=== PATIENT | male | born 1980 | race Two or more races ===

== ENCOUNTER 2024-11-06 21:48 | Inpatient (IN) | payer OTHER ==
[~2024-11-06] VITALS: Ht 177.8 cm; Wt 105.2 kg
--- NOTE | 2024-11-06 22:37 | NUR ---
SE RECIBE PACIENTE MASCULINO DE 44 ANOS DE EDAD SE PRESENTA CON QUEJA PRINCIPAL DE HIN[place] EN EXTREMIDADES INFERIORES Y LEVE FATIGA AL CAMINAR. REFIERE DX RECIENTE DE FALLO RENAL POR EL DR.JOSE CHENG DE [place]. PACIENTE ESTUVO ADMITIDO EN DICHA INSTITUCION PARA MANEJO TERAPEUTICO CON FLUIDOS Y MONITOREO DE FUNCION RENAL, JONATHAN REFIERE QUE EXONERO LOS [facility] ANTES DE COMPLETAR [place]. NIEGA DOLOR DE PECHO,DISNEA SEVERA. PACIENTE AL MOMENTO CONSCIENTE, ORIENTADO EN SHAWNA GINNY ESFERAS Y ESTABLE AL MOMENTO
--- NOTE | 2024-11-07 00:26 | NUR ---
SE EDUCA PACIENTE SOBRE EL TX MEDICO Y POOL REFIERE ENTENDER. SE CANALIZA Y SE ADMINISTRA MEDICAMENTOS ISMAEL ORDEN MEDICA. PENDIENTE A PLACA Y U/A.
--- NOTE | 2024-11-07 00:58 | NUR ---
SE NOTIFICAN KATIE BARNES
[2024-11-07 01:03] LABS: BASO % 0.2 % (0.1-1.2); EOS # 0.11 (0.04-0.54); EOS % 0.8 % (0.7-7.0); LYMPH # 1.67 (1.18-3.74); LYMPH % 11.7 % (19.3-53.1); MEAN PLATELET VOLUME 9.60 fl (9.4-12.4); MONO # 1.00 (0.24-0.82); MONO % 7.0 % (4.7-12.5); NEUT # 11.44 (1.56-6.13); NEUT % 79.7 % (34.0-71.1); RED CELL DISTRIBUTION WIDTH 15.8 % (11.6-14.4)
[2024-11-07] MEDS ORDERED: LEVALBUTEROL HCL 1.25 MG/3 ML SOLUTION IH SCH (01:16)
[2024-11-07 01:18] LABS: ABG PH 7.325 (7.35-7.45); ABG PO2 79.0 mmHg (80-100)
[2024-11-07 01:19] LABS: BICARBONATE 17.9 mmol/l (23-25); o2 21 %
[2024-11-07] MEDS ORDERED: LEVALBUTEROL HCL 1.25 MG/3 ML SOLUTION IH ONE ×5 (01:39→20:50)
[2024-11-07 02:15] LABS: ALT/SGPT 32.0 U/L (12-78); AST/SGOT 17.0 U/L (15-37); BILIRUBIN TOTAL 0.24 mg/dL (0.3-1.2); GLOBULINA 3.5 G/DL (2.4-3.5)
[2024-11-07 02:44] LABS: BUN CREA RATIO 7.0 (7.0-25.0); OSMOLALITY SERUM 309.0 MOSM/KG (275-295)
[2024-11-07 02:45] LABS: CREATININE SERUM 9.48 mg/dL (0.70-1.30); GFR 6.0; GLUCOSE FASTING 221.0 mg/dL (65-100)
[2024-11-07 04:26] LABS: URINE APPEARANCE Clear; URINE BILIRRUBIN Negative (NEGATIVE); URINE BLOOD Moderate; URINE COLOR Yellow; URINE KETONE Negative (NEGATIVE); URINE LEUKOCYTE Negative; URINE NITRATE Negative; URINE PROTEIN >=1000 (NEGATIVE); URINE UROBILINOGEN 0.2 E.U./dl
[2024-11-07 04:30] LABS: URINE BACTERIA 65.9 uL (0.0-1933); URINE CAST 1.75 uL (0.0-1.40); URINE EPITHELIAL CELLS 10.3 uL (0.0-38.8); URINE RBC 24.4 uL (0.0-20.8); URINE WBC 16.1 uL (0.0-23.2)
[2024-11-07 04:56] LABS: URINE GLUCOSE >=1000 MG/DL (NEGATIVE)
--- NOTE | 2024-11-07 05:09 | NUR ---
SE COLOCA PACIENTE EN CHILO K-7 Y SE CONECTA A MONITOR CARDIACO
--- NOTE | 2024-11-07 07:16 | NUR ---
SE RECIBE PTE DEL TURNO ANTERIOR ALERTA Y ORIENTADO X3 EN CAMA CON BARANDAS ELEVADAS CONECTADO A MONITOR CARDIACO Y OXIMETRIA CONTINUA. PTE CONSULTADO CON DR ALVARES Y DR HARRIS
[2024-11-07] MEDS ORDERED: LEVALBUTEROL HCL 0.63 MG/3 ML SOLUTION IH ONE (11:00)
[2024-11-07] MEDS ORDERED: GUAIFEN/DEXTROMETHORPHAN/PE 10 ML BLIST.PACK PO ONE ×2 (11:00→11:51)
--- NOTE | 2024-11-07 15:46 | NUR ---
SE NOTIFICA BP A (160/100MMHG).
[2024-11-07] MEDS ORDERED: INSULIN LISPRO 1,000 UNIT/10 ML UNITS SUBCUTANEO PRN (19:30)
[2024-11-07] MEDS ORDERED: SODIUM BICARBONATE 1 MEQ/ML DISP.SYRIN 50ML IV ONE (19:30)
[2024-11-07] MEDS ORDERED: NITROGLYCERIN IN 5 % DEXTROSE 250 ML IV SCH (19:30)
[2024-11-07] MEDS ORDERED: DEXTROSE 50 % IN WATER 0.5 G/ML VIAL IV PRN (19:30)
[2024-11-07] MEDS ORDERED: NITROGLYCERIN IN 5 % DEXTROSE 50 MG/250 ML BOTTLE IV ONE (19:44)
[2024-11-07] MEDS ORDERED: CALCIUM GLUCONATE 100 MG/ML VIAL IV ONE (19:45)
[2024-11-07] MEDS ORDERED: SODIUM BICARBONATE 50MEQ/50ML VIAL IV ONE (20:17)
[2024-11-07] MEDS ORDERED: PIPERACILLIN/TAZOBACTAM SODIUM 2.25 GM VIAL IV SCH (21:00)
[2024-11-07 21:35] VITALS: BP 174/108; O2SAT 100
[2024-11-07] MEDS ORDERED: ACETAMINOPHEN 500 MG GEL..CAP PO ONE (22:04)
[2024-11-07] MEDS ORDERED: ACETAMINOPHEN 325 MG TABLET PO PRN (22:15)
[2024-11-07 23:35] VITALS: BP 169/92; O2SAT 100
[2024-11-08] VITALS (13 sets, daily range): BP systolic 135–170; BP diastolic 78–98; O2SAT 93–100
[2024-11-08 00:08] LABS: BASO % 0.3 % (0.1-1.2); EOS # 0.73 (0.04-0.54); EOS % 5.9 % (0.7-7.0); LYMPH # 1.97 (1.18-3.74); LYMPH % 15.9 % (19.3-53.1); MEAN PLATELET VOLUME 9.30 fl (9.4-12.4); MONO # 0.87 (0.24-0.82); MONO % 7.0 % (4.7-12.5); NEUT # 8.73 (1.56-6.13); NEUT % 70.5 % (34.0-71.1); RED CELL DISTRIBUTION WIDTH 15.7 % (11.6-14.4)
[2024-11-08 00:59] LABS: ALT/SGPT 33.0 U/L (12-78); AST/SGOT 10.0 U/L (15-37); BILIRUBIN TOTAL 0.26 mg/dL (0.3-1.2); GLOBULINA 3.4 G/DL (2.4-3.5); GLUCOSE FASTING 151.0 mg/dL (65-100); OSMOLALITY SERUM 308.0 MOSM/KG (275-295)
[2024-11-08 01:19] LABS: BUN CREA RATIO 7.0 (7.0-25.0); GFR 5.99
[2024-11-08] MEDS ORDERED: LEVALBUTEROL HCL 1.25 MG/3 ML SOLUTION IH ONE ×3 (01:20→20:00)
[2024-11-08 01:21] LABS: CKMB 34.2 NG/ML (0.5-3.6); CREATININE SERUM 9.5 mg/dL (0.70-1.30)
[2024-11-08] MEDS ORDERED: NITROGLYCERIN IN 5 % DEXTROSE 250 ML IV SCH (09:15)
[2024-11-08] MEDS ORDERED: ACETAMINOPHEN 500 MG GEL..CAP PO ONE (10:56)
[2024-11-08] MEDS ORDERED: NIFEDIPINE 30 MG TAB.SA.OSM PO SCH (10:57)
[2024-11-08] MEDS ORDERED: SODIUM POLYSTYRENE SULFONATE 30G/8 TSP PO SCH (12:00)
[2024-11-08] MEDS ORDERED: LACTULOSE 20 G/30 ML BLIST.PACK PO SCH (12:00)
[2024-11-08 12:43] LABS: CHOL HDL RATIO 4.5 (0-5.0); HDL 50.0 mg/dl (40-60); LDL 129.0 mg/dl (0-130); VLDL 45.0 (0-39)
[2024-11-08] MEDS ORDERED: FAMOTIDINE/PF 20 MG/2 ML VIAL ONE (17:45)
[2024-11-08] MEDS ORDERED: FAMOTIDINE/PF 20 MG/2 ML VIAL IV PRN (18:00)
[2024-11-09] MEDS ORDERED: SODIUM POLYSTYRENE SULFONATE 30G/8 TSP PO SCH
== END 2024-11-08 22:35 | disposition left against medical advice (07) | DRG 683 ==
LOC: ER 21:48 → ICU-2 11-07 19:40 → ICU 11-08 20:34
PROVIDERS: General Practice; Internal Medicine; ADMIT Internal Medicine; ATTEND Internal Medicine
PROC: B246ZZZ Ultrasonography of Right and Left Heart (ICD-10-PCS; principal; 2024-11-07)
PROC: 3E0F7GC Introduction of Other Therapeutic Substance into Respiratory Tract, Via Natural or Artificial Opening (ICD-10-PCS; 2024-11-08)
DX: N17.9 Acute kidney failure, unspecified (principal); I13.0 Hypertensive heart and chronic kidney disease with heart failure and stage 1 through stage 4 chronic kidney disease, or unspecified chronic kidney disease; I50.9 Heart failure, unspecified; N18.9 Chronic kidney disease, unspecified; Z53.29 Procedure and treatment not carried out because of patient's decision for other reasons

== ENCOUNTER 2024-11-10 23:37 | Inpatient (IN) | payer OTHER ==
[~2024-11-10] VITALS: Ht 177.8 cm; Wt 105.2 kg
[2024-11-10] MEDS ORDERED: HUMALOG100 UNIT/2 SUBCUTANEO (23:58)
[2024-11-11 01:12] LABS: BASO % 0.4 % (0.1-1.2); EOS # 0.58 (0.04-0.54); EOS % 4.5 % (0.7-7.0); LYMPH # 2.08 (1.18-3.74); LYMPH % 16.0 % (19.3-53.1); MEAN PLATELET VOLUME 9.30 fl (9.4-12.4); MONO # 1.30 (0.24-0.82); MONO % 10.0 % (4.7-12.5); NEUT # 8.91 (1.56-6.13); NEUT % 68.5 % (34.0-71.1); RED CELL DISTRIBUTION WIDTH 15.6 % (11.6-14.4)
[2024-11-11 01:24] LABS: ABG PH 7.369 (7.35-7.45); ABG PO2 66.6 mmHg (80-100); BICARBONATE 18.7 mmol/l (23-25)
[2024-11-11 01:32] LABS: INR 1.03
[2024-11-11 01:36] LABS: o2 21 %
[2024-11-11 01:43] LABS: ALT/SGPT 36.0 U/L (12-78); AST/SGOT 21.0 U/L (15-37); BILIRUBIN TOTAL 0.21 mg/dL (0.3-1.2); BUN CREA RATIO 7.0 (7.0-25.0); GFR 5.94; GLOBULINA 3.8 G/DL (2.4-3.5); GLUCOSE FASTING 181.0 mg/dL (65-100); OSMOLALITY SERUM 308.0 MOSM/KG (275-295)
[2024-11-11 02:08] LABS: CREATININE SERUM 9.57 mg/dL (0.70-1.30)
[2024-11-11 02:35] LABS: URINE APPEARANCE Clear; URINE BILIRRUBIN Negative (NEGATIVE); URINE BLOOD Moderate; URINE COLOR Yellow; URINE KETONE Negative (NEGATIVE); URINE LEUKOCYTE Negative; URINE NITRATE Negative; URINE PROTEIN >=1000 (NEGATIVE); URINE UROBILINOGEN 0.2 E.U./dl
[2024-11-11 02:36] LABS: URINE BACTERIA 38.3 uL (0.0-1933); URINE CAST 2.93 uL (0.0-1.40); URINE EPITHELIAL CELLS 10.9 uL (0.0-38.8); URINE RBC 25.3 uL (0.0-20.8); URINE WBC 15.6 uL (0.0-23.2)
[2024-11-11 02:40] LABS: URINE GLUCOSE 500 MG/DL (NEGATIVE)
[2024-11-11] MEDS ORDERED: GUAIFENESIN 200 MG/10 ML BLIST.PACK PO STA (03:47)
[2024-11-11] MEDS ORDERED: ALBUTEROL SULFATE 3 ML/2.5 MG AMPUL.NEB IH STA (03:47)
[2024-11-11] MEDS ORDERED: GUAIFENESIN 200 MG/10 ML BLIST.PACK PO ONE (04:09)
[2024-11-11] MEDS ORDERED: ALBUTEROL SULFATE 3 ML/2.5 MG AMPUL.NEB IH ONE (04:10)
[2024-11-11] MEDS ORDERED: IPRATROPIUM BROMIDE 0.5 MG/2.5 ML AMPUL.NEB IH SCH (17:59)
[2024-11-11] MEDS ORDERED: DEXTROSE 50 % IN WATER 0.5 G/ML DISP.SYRIN IV PRN (18:15)
[2024-11-11] MEDS ORDERED: INSULIN LISPRO 1,000 UNIT/10 ML UNITS SUBCUTANEO PRN (18:15)
[2024-11-11] MEDS ORDERED: NITROGLYCERIN IN 5 % DEXTROSE 250 ML IV SCH (18:15)
[2024-11-11] MEDS ORDERED: ACETAMINOPHEN 500 MG GEL..CAP PO PRN (18:15)
[2024-11-11 19:31] VITALS: BP 159/89; O2SAT 98
[2024-11-11] MEDS ORDERED: NITROGLYCERIN IN 5 % DEXTROSE 50 MG/250 ML BOTTLE IV ONE (19:40)
[2024-11-11 20:44] LABS: COVID-19 AG NEGATIVE (NEGATIVE)
[2024-11-11 22:08] VITALS: BP 178/114; O2SAT 100
[2024-11-11 23:12] VITALS: BP 171/104; O2SAT 100
[2024-11-12] VITALS (21 sets, daily range): BP systolic 142–188; BP diastolic 71–110; O2SAT 97–100
[2024-11-12] MEDS ORDERED: hydrALAZINE HCL 20 MG VIAL IV ONE (06:00)
[2024-11-12] MEDS ORDERED: NITROGLYCERIN IN 5 % DEXTROSE 250 ML IV SCH (06:30)
[2024-11-12] MEDS ORDERED: ENOXAPARIN SODIUM 30 MG/0.3 ML SYRINGE SUBCUTANEO SCH (09:00)
[2024-11-12] MEDS ORDERED: FAMOTIDINE/PF 20 MG in 0.9 % SODIUM CHLORIDE 8 ML IV PUSH SCH (09:00)
[2024-11-12] MEDS ORDERED: ENALAPRILAT DIHYDRATE 2.5 MG/2 ML VIAL IV PRN (14:15)
[2024-11-12 15:01] LABS: BASO % 0.6 % (0.1-1.2); EOS # 0.67 (0.04-0.54); EOS % 6.8 % (0.7-7.0); LYMPH # 1.52 (1.18-3.74); LYMPH % 15.4 % (19.3-53.1); MEAN PLATELET VOLUME 9.20 fl (9.4-12.4); MONO # 0.95 (0.24-0.82); MONO % 9.6 % (4.7-12.5); NEUT # 6.65 (1.56-6.13); NEUT % 67.1 % (34.0-71.1); RED CELL DISTRIBUTION WIDTH 15.9 % (11.6-14.4)
[2024-11-12 15:27] LABS: ALT/SGPT 35.0 U/L (12-78); AST/SGOT 19.0 U/L (15-37); BILIRUBIN TOTAL 0.42 mg/dL (0.3-1.2); BUN CREA RATIO 7.0 (7.0-25.0); GFR 6.03; GLOBULINA 3.3 G/DL (2.4-3.5); GLUCOSE FASTING 100.0 mg/dL (65-100); OSMOLALITY SERUM 307.0 MOSM/KG (275-295)
[2024-11-12 15:44] LABS: CREATININE SERUM 9.44 mg/dL (0.70-1.30)
[2024-11-12] MEDS ORDERED: LIDOCAINE HCL 1% 10ML VIAL ONE (16:58)
[2024-11-12] MEDS ORDERED: HEPARIN SODIUM,PORCINE 5,000 UNITS/ML VIAL ONE (17:06)
[2024-11-13] VITALS (15 sets, daily range): BP systolic 135–173; BP diastolic 78–109; O2SAT 95–100
[2024-11-13] MEDS ORDERED: 0.9 % SODIUM CHLORIDE 10 ML VIAL IJ ONE (00:48)
[2024-11-13] MEDS ORDERED: METOPROLOL SUCCINATE 50 MG TAB.SR.24H PO SCH (09:00)
[2024-11-13] MEDS ORDERED: AMLODIPINE BESYLATE 10 MG TABLET PO SCH (09:00)
[2024-11-13] MEDS ORDERED: LOSARTAN POTASSIUM 50 MG TABLET PO SCH (09:00)
[2024-11-13] MEDS ORDERED: HEPARIN SODIUM,PORCINE 5,000 UNITS/ML VIAL ONE (12:25)
[2024-11-13 12:44] LABS: BASO % 0.3 % (0.1-1.2); EOS # 0.47 (0.04-0.54); EOS % 5.1 % (0.7-7.0); LYMPH # 1.52 (1.18-3.74); LYMPH % 16.4 % (19.3-53.1); MEAN PLATELET VOLUME 9.10 fl (9.4-12.4); MONO # 0.85 (0.24-0.82); MONO % 9.2 % (4.7-12.5); NEUT # 6.34 (1.56-6.13); NEUT % 68.5 % (34.0-71.1); RED CELL DISTRIBUTION WIDTH 15.5 % (11.6-14.4)
[2024-11-13 13:45] LABS: BUN CREA RATIO 7.0 (7.0-25.0); GFR 12.59; GLUCOSE FASTING 121.0 mg/dL (65-100); OSMOLALITY SERUM 288.0 MOSM/KG (275-295)
[2024-11-13 14:10] LABS: CREATININE SERUM 4.99 mg/dL (0.70-1.30)
[2024-11-14 02:35] VITALS: BP 135/81; O2SAT 96
[2024-11-14 07:47] LABS: BASO % 0.4 % (0.1-1.2); EOS # 0.45 (0.04-0.54); EOS % 5.0 % (0.7-7.0); LYMPH # 1.26 (1.18-3.74); LYMPH % 13.9 % (19.3-53.1); MEAN PLATELET VOLUME 9.70 fl (9.4-12.4); MONO # 0.79 (0.24-0.82); MONO % 8.7 % (4.7-12.5); NEUT # 6.50 (1.56-6.13); NEUT % 71.6 % (34.0-71.1); RED CELL DISTRIBUTION WIDTH 15.4 % (11.6-14.4)
[2024-11-14 08:30] LABS: BUN CREA RATIO 6.0 (7.0-25.0); GFR 8.5; GLUCOSE FASTING 126.0 mg/dL (65-100); OSMOLALITY SERUM 292.0 MOSM/KG (275-295)
[2024-11-14 08:57] VITALS: BP 144/90
[2024-11-14 09:20] LABS: CREATININE SERUM 7.01 mg/dL (0.70-1.30)
[2024-11-14] MEDS ORDERED: ONDANSETRON HCL 2 MG/ML VIAL IV PRN (10:15)
[2024-11-14] MEDS ORDERED: CODEINE PHOSPHATE/GUAIFENESIN 5 ML ML PO SCH (13:00)
[2024-11-14 18:06] VITALS: BP 167/97
[2024-11-15 02:52] VITALS: BP 135/79; O2SAT 96
[2024-11-15 08:27] VITALS: BP 133/83
[2024-11-15] MEDS ORDERED: METOPROLOL SUCCINATE 100 MG TAB.SR.24H PO SCH (09:00)
[2024-11-15] MEDS ORDERED: HEPARIN SODIUM,PORCINE 5,000 UNITS/ML VIAL SPEPROC ONE (14:45)
[2024-11-15 17:13] VITALS: BP 142/77; O2SAT 95
[2024-11-16 01:37] VITALS: BP 148/79; O2SAT 94
[2024-11-16 07:09] LABS: BUN CREA RATIO 5.0 (7.0-25.0); GFR 9.76; GLUCOSE FASTING 119.0 mg/dL (65-100); OSMOLALITY SERUM 289.0 MOSM/KG (275-295)
[2024-11-16 07:41] LABS: CREATININE SERUM 6.22 mg/dL (0.70-1.30)
[2024-11-16 08:45] VITALS: BP 131/74; O2SAT 93
[2024-11-16] MEDS ORDERED: EPOETIN ALFA-EPBX 10,000 UNIT/ML VIAL (Retacrit) SUBCUTANEO SCH ×2 (09:00→12:00)
[2024-11-16] MEDS ORDERED: FAMOTIDINE/PF 20 MG/2 ML VIAL IV NR (10:00)
[2024-11-16] MEDS ORDERED: BUPIVACAINE HCL/MPF 0.5% 30ML VIAL ONE (16:27)
[2024-11-16] MEDS ORDERED: HEPARIN SODIUM,PORCINE/PF 100 UNIT/ML SYRINGE IV ONE (16:27)
[2024-11-16] MEDS ORDERED: IOVERSOL 320 MG/ML - 50 ML VIAL IV ONE (16:27)
[2024-11-16] MEDS ORDERED: ENALAPRILAT DIHYDRATE 1.25 MG/ML VIAL IV ONE (18:51)
[2024-11-16 20:09] VITALS: BP 154/90; O2SAT 96
[2024-11-16] MEDS ORDERED: FAMOTIDINE/PF 20 MG/2 ML VIAL IV SCH (21:00)
[2024-11-17 00:48] VITALS: BP 156/89; O2SAT 98
[2024-11-17 07:58] VITALS: BP 133/69
[2024-11-17 16:43] VITALS: BP 138/88
[2024-11-17] MEDS ORDERED: MELATONIN 5 MG TABLET PO SCH (21:00)
[2024-11-18 02:05] VITALS: BP 127/75; O2SAT 96
[2024-11-18 08:35] VITALS: BP 158/88
[2024-11-18 17:33] VITALS: BP 146/87; O2SAT 96
[2024-11-19 04:31] VITALS: BP 153/82; O2SAT 96
[2024-11-19 09:59] VITALS: BP 155/80; O2SAT 97
[2024-11-19] MEDS ORDERED: HEPARIN SODIUM,PORCINE 5,000 UNITS/ML VIAL IV STA (14:29)
== END 2024-11-19 16:43 | disposition home or self-care (01) | DRG 683 ==
LOC: ER 23:37 → ICU-2 11-11 18:20 → MEDJ 11-11 18:20 → ICU 11-11 18:20 → MEDJ 11-13 14:47
PROVIDERS: General Practice; Internal Medicine; Internal Medicine Nephrology; Radiology Vascular & Interventional Radiology; ADMIT Student in an Organized Health Care Education/Training Program; ATTEND Student in an Organized Health Care Education/Training Program
PROC: B24BYZZ Ultrasonography of Heart with Aorta using Other Contrast (ICD-10-PCS; 2024-11-11)
PROC: 30233N1 Transfusion of Nonautologous Red Blood Cells into Peripheral Vein, Percutaneous Approach (ICD-10-PCS; 2024-11-12)
PROC: 5A1D70Z Performance of Urinary Filtration, Intermittent, Less than 6 Hours Per Day (ICD-10-PCS; 2024-11-13)
PROC: 5A1D70Z Performance of Urinary Filtration, Intermittent, Less than 6 Hours Per Day (ICD-10-PCS; 2024-11-15)
PROC: B513ZZA Fluoroscopy of Right Jugular Veins, Guidance (ICD-10-PCS; 2024-11-16)
PROC: 05HM33Z Insertion of Infusion Device into Right Internal Jugular Vein, Percutaneous Approach (ICD-10-PCS; principal; 2024-11-16 17:10)
PROC: 5A1D70Z Performance of Urinary Filtration, Intermittent, Less than 6 Hours Per Day (ICD-10-PCS; 2024-11-17)
PROC: 5A1D70Z Performance of Urinary Filtration, Intermittent, Less than 6 Hours Per Day (ICD-10-PCS; 2024-11-19)
DX: N17.9 Acute kidney failure, unspecified (principal); I12.0 Hypertensive chronic kidney disease with stage 5 chronic kidney disease or end stage renal disease; J90 Pleural effusion, not elsewhere classified; D64.9 Anemia, unspecified; I50.9 Heart failure, unspecified; N18.6 End stage renal disease